=== PATIENT | female | born 1940 | race Two or more races ===

== ENCOUNTER 2017-09-19 04:48 | Emergency (ER) | payer MEDICARE, MEDICAID ==
[~2017-09-19] VITALS: Ht 154.9 cm; Wt 80.5 kg
[~2017-09-19 04:48] MED LIST: ALBU18HF2 INH; ASPI-1265 PO; ATOR-2 PO; DEXL60CA3 PO; INSU100V13 SQ; LANTUS SUBCUT; PAT0.1OS OP; SPIIN IH; VALS160T2 PO; [UNRECOGNIZED DRUG - OTHER]
[2017-09-19] MEDS ORDERED: phenylephrine 1% (X-tra strg) 15ml nasal spray NS PRN (05:48)
[2017-09-19] MEDS ORDERED: cloNIDine 0.1 mg tablet PO ONE (06:02)
[2017-09-19 07:56] VITALS: BP 234/106
[2017-09-19] MEDS ORDERED: cloNIDine 0.1 mg tablet PO SCH (08:00)
== END 2017-09-19 07:55 | disposition home or self-care (01) ==
LOC: ER 04:49
DX: R04.0 Epistaxis (principal); I10 Essential (primary) hypertension; E78.00 Pure hypercholesterolemia, unspecified; J44.9 Chronic obstructive pulmonary disease, unspecified; E11.9 Type 2 diabetes mellitus without complications; Z90.710 Acquired absence of both cervix and uterus; Z90.49 Acquired absence of other specified parts of digestive tract; Z88.0 Allergy status to penicillin; Z88.5 Allergy status to narcotic agent; Z88.1 Allergy status to other antibiotic agents; Z79.82 Long term (current) use of aspirin; Z79.899 Other long term (current) drug therapy; Z79.4 Long term (current) use of insulin
CPT/HCPCS: 30901; 99284

== ENCOUNTER 2017-09-21 21:09 | Emergency (ER) | payer MEDICARE, MEDICAID ==
[~2017-09-21] VITALS: Ht 154.9 cm; Wt 79.5 kg
[2017-09-21] MEDS ORDERED: nitroGLYCERIN 0.4mg SUBLingual tab SL PRN (21:15)
[2017-09-21] MEDS ORDERED: aspirin 81mg tab.chew PO ONE (21:15)
[2017-09-21 21:36] LABS: BASOPHILS % (AUTO) 0.6 % (0-1); EOSINOPHILS # (AUTO) 0.1 X10'3 (0-0.9); EOSINOPHILS % (AUTO) 1.1 % (0-6); HEMATOCRIT 39.5 % (35.0-45.0); HEMOGLOBIN 13.1 g/dl (12.0-16.0); LYMPHOCYTES # (AUTO) 1.8 X10'3 (1.1-4.8); LYMPHOCYTES % (AUTO) 26.3 % (21-51); MEAN CORPUSCULAR HEMOGLOBIN 29.3 PG (27.0-31.0); MEAN CORPUSCULAR HGB CONC 33.3 % (33.0-36.5); MEAN CORPUSCULAR VOLUME 88.2 FL (78-98); MEAN PLATELET VOLUME 8.9 FL (7.4-10.4); MONOCYTES # (AUTO) 0.4 X10'3 (0-0.9); MONOCYTES % (AUTO) 5.9 % (2-12); NEUTROPHILS # (AUTO) 4.4 X10'3 (1.8-7.7); NEUTROPHILS % (AUTO) 66.1 % (42-75); PLATELET COUNT 206 X10'3 (140-440); RED BLOOD COUNT 4.48 X10'6 (4.20-5.60); RED CELL DISTRIBUTION WIDTH 13.4 % (11.5-14.5); WHITE BLOOD COUNT 6.7 X10'3 (4.5-11.0)
[2017-09-21] MEDS ORDERED: MORPHINE 2MG in 2ml NS syringe IV PRN (21:45)
[2017-09-21 21:50] LABS: PROTHROMBIN TIME 9.9 SECONDS (9.0-12.0)
[2017-09-21] MEDS ORDERED: morphine 4 MG/ML inj SYRINge IV ONE (21:50)
[2017-09-21 21:51] LABS: ALANINE AMINOTRANSFERASE 12 U/L (12-78); ALBUMIN 3.3 G/DL (3.4-5.0); ALBUMIN/GLOBULIN RATIO 0.8 (1.1-1.5); ALKALINE PHOSPHATASE 130 IU/L (46-116); ANION GAP 4 (8-16); ASPARTATE AMINO TRANSFERASE 18 U/L (10-37); BILIRUBIN,TOTAL 0.4 MG/DL (0.1-1.0); BLOOD UREA NITROGEN 13 MG/DL (7-18); BUN/CREATININE RATIO 16.9 (6.6-38.0); CALCIUM 8.8 MG/DL (8.5-10.1); CHLORIDE 103 MMOL/L (99-107); CREATININE 0.77 MG/DL (0.40-0.90); GLUCOSE 312 MG/DL (70-104); POTASSIUM 3.8 MMOL/L (3.5-5.1); SODIUM 140 MMOL/L (135-145); TOTAL CARBON DIOXIDE 32.9 MMOL/L (24-32); TOTAL PROTEIN 7.2 G/DL (6.4-8.2); eGFR 73 ML/MIN
[2017-09-21 21:59] LABS: MAGNESIUM 1.9 MG/DL (1.5-2.4)
[2017-09-21] MEDS ORDERED: iohexol 350MG/ML 100ml bottle IV ONE (22:18)
[2017-09-21] MEDS ORDERED: LINA5TAB4 PO (23:01)
[2017-09-21] MEDS ORDERED: LANTUS SQ (23:01)
[2017-09-21] MEDS ORDERED: PARO40TA PO (23:01)
[2017-09-21] MEDS ORDERED: methylPREDNISolone sod succ 125mg/2ml vial IV ONE (23:20)
[2017-09-22 00:01] VITALS: BP 148/112
[2017-09-22] MEDS ORDERED: PRED20TA PO (00:27)
== END 2017-09-22 00:44 | disposition home or self-care (01) ==
LOC: ER 21:10
DX: R07.89 Other chest pain (principal); J44.1 Chronic obstructive pulmonary disease with (acute) exacerbation; E78.00 Pure hypercholesterolemia, unspecified; I10 Essential (primary) hypertension; E11.9 Type 2 diabetes mellitus without complications; M81.0 Age-related osteoporosis without current pathological fracture; Z90.49 Acquired absence of other specified parts of digestive tract; Z90.710 Acquired absence of both cervix and uterus; Z98.890 Other specified postprocedural states; Z90.89 Acquired absence of other organs; Z88.0 Allergy status to penicillin; Z88.5 Allergy status to narcotic agent; Z88.1 Allergy status to other antibiotic agents; Z79.82 Long term (current) use of aspirin; Z79.4 Long term (current) use of insulin; Z79.899 Other long term (current) drug therapy
CPT/HCPCS: 36415; 71045; 71275; 80053; 83735; 83880; 84484; 85025; 85379; 85610; 93005; 96374; 96375; 99285; J2270; J2930; J7030; Q9967; J2274

== ENCOUNTER 2017-11-19 16:25 | Emergency (ER) | payer MEDICARE, MEDICAID ==
[~2017-11-19] VITALS: Ht 154.9 cm; Wt 78.0 kg
[~2017-11-19 16:25] MED LIST changes: +LANTUS SQ; +LINA5TAB4 PO; +PARO40TA PO; -PAT0.1OS OP
[2017-11-19 20:14] VITALS: BP 179/66
== END 2017-11-19 20:16 | disposition home or self-care (01) ==
LOC: ER 16:26
DX: R04.0 Epistaxis (principal); E11.9 Type 2 diabetes mellitus without complications; E78.00 Pure hypercholesterolemia, unspecified; I10 Essential (primary) hypertension; J44.9 Chronic obstructive pulmonary disease, unspecified; K21.9 Gastro-esophageal reflux disease without esophagitis; G89.29 Other chronic pain; Z90.49 Acquired absence of other specified parts of digestive tract; Z90.710 Acquired absence of both cervix and uterus; Z98.890 Other specified postprocedural states; Z88.0 Allergy status to penicillin; Z88.5 Allergy status to narcotic agent; Z88.8 Allergy status to other drugs, medicaments and biological substances; Z79.82 Long term (current) use of aspirin; Z79.4 Long term (current) use of insulin; Z79.899 Other long term (current) drug therapy
CPT/HCPCS: 99283

== ENCOUNTER 2018-03-12 13:40 | Emergency (ER) | payer MEDICARE, MEDICAID ==
[~2018-03-12] VITALS: Ht 152.4 cm; Wt 83.6 kg
[2018-03-12 13:56] VITALS: BP 158/79
[2018-03-12 14:36] LABS: BASOPHILS % (AUTO) 0.2 % (0-1); EOSINOPHILS # (AUTO) 0.1 X10'3 (0-0.9); EOSINOPHILS % (AUTO) 1.8 % (0-6); HEMATOCRIT 40.3 % (35.0-45.0); HEMOGLOBIN 12.7 g/dl (12.0-16.0); LYMPHOCYTES # (AUTO) 1.5 X10'3 (1.1-4.8); LYMPHOCYTES % (AUTO) 30.5 % (21-51); MEAN CORPUSCULAR HEMOGLOBIN 27.1 PG (27.0-31.0); MEAN CORPUSCULAR HGB CONC 31.5 % (33.0-36.5); MEAN CORPUSCULAR VOLUME 85.9 FL (78-98); MONOCYTES # (AUTO) 0.4 X10'3 (0-0.9); MONOCYTES % (AUTO) 7.5 % (2-12); NEUTROPHILS # (AUTO) 2.9 X10'3 (1.8-7.7); PLATELET COUNT 289 X10'3 (140-440); RED BLOOD COUNT 4.69 X10'6 (4.20-5.60); RED CELL DISTRIBUTION WIDTH 14.5 % (11.5-14.5); WHITE BLOOD COUNT 4.9 X10'3 (4.5-11.0)
[2018-03-12 14:39] LABS: PROTHROMBIN TIME 10.1 SECONDS (9.0-12.0)
[2018-03-12 14:40] LABS: CLARITY,URINE SLIGHTLY CLOUDY (Clear); COLOR,URINE YELLOW (Yellow); GLUCOSE, URINE 100 mg/dl (Neg); KETONES,URINE NEGATIVE (Neg); LEUKOCYTE ESTERASE ,URINE SMALL (Neg); NITRITES, URINE NEGATIVE (Neg); OCCULT BLOOD,URINE TRACE-LYSED (Neg); PROTEIN,URINE NEGATIVE (Neg); UROBILINOGEN,URINE 0.2 E.U/dL (0.2-1.0)
[2018-03-12 14:41] LABS: UA COLLECTION TYPE CLN CATCH MIDSTREAM
[2018-03-12 14:43] LABS: ALANINE AMINOTRANSFERASE 25 U/L (12-78); ALBUMIN 3.3 G/DL (3.4-5.0); ALBUMIN/GLOBULIN RATIO 0.9 (1.1-1.5); ALKALINE PHOSPHATASE 86 IU/L (46-116); AMYLASE 30 U/L (25-115); ANION GAP 8 (8-16); ASPARTATE AMINO TRANSFERASE 18 U/L (10-37); BILIRUBIN,TOTAL 0.4 MG/DL (0.1-1.0); BLOOD UREA NITROGEN 10 MG/DL (7-18); BUN/CREATININE RATIO 12.8 (6.6-38.0); CALCIUM 8.6 MG/DL (8.5-10.1); CHLORIDE 104 MMOL/L (99-107); CREATININE 0.78 MG/DL (0.40-0.90); GLUCOSE 153 MG/DL (70-104); LIPASE 107 U/L (73-393); POTASSIUM 3.6 MMOL/L (3.5-5.1); SODIUM 143 MMOL/L (135-145); eGFR 72 ML/MIN
[2018-03-12 14:50] LABS: MUCUS STRANDS MANY /LPF (Neg)
[2018-03-12 14:51] LABS: BACTERIA,URINE FEW /HPF (Neg); WBC CLUMPS,URINE FEW /HPF (NEGATIVE)
[2018-03-12 14:52] LABS: RBC,URINE 0-2 /HPF (0-2)
[2018-03-12 14:54] LABS: RENAL CELLS, URINE FEW /HPF; SQUAMOUS EPITHELIAL CELL,UR MODERATE /LPF (FEW); TRANSITIONAL EPI CELLS,URINE FEW /HPF
[2018-03-12] MEDS ORDERED: SULF1TAB49 PO (14:58)
== END 2018-03-12 15:05 | disposition home or self-care (01) ==
LOC: ER 13:40
DX: N39.0 Urinary tract infection, site not specified (principal); R19.7 Diarrhea, unspecified; R14.0 Abdominal distension (gaseous); E78.00 Pure hypercholesterolemia, unspecified; I10 Essential (primary) hypertension; J44.9 Chronic obstructive pulmonary disease, unspecified; K21.9 Gastro-esophageal reflux disease without esophagitis; G89.29 Other chronic pain; E11.9 Type 2 diabetes mellitus without complications; M81.0 Age-related osteoporosis without current pathological fracture; I25.2 Old myocardial infarction; Z87.440 Personal history of urinary (tract) infections; Z88.0 Allergy status to penicillin; Z88.1 Allergy status to other antibiotic agents; Z88.6 Allergy status to analgesic agent; Z79.899 Other long term (current) drug therapy; Z79.82 Long term (current) use of aspirin; Z87.442 Personal history of urinary calculi; Z79.4 Long term (current) use of insulin; Z90.49 Acquired absence of other specified parts of digestive tract; Z90.710 Acquired absence of both cervix and uterus; Z90.89 Acquired absence of other organs
CPT/HCPCS: 36415; 80053; 81001; 82150; 83690; 85025; 85610; 87088; 99283

== ENCOUNTER 2018-03-23 14:20 | Emergency (ER) | payer MEDICARE, MEDICAID ==
[~2018-03-23] VITALS: Ht 152.4 cm; Wt 78.0 kg
[2018-03-23 15:19] LABS: BASOPHILS % (AUTO) 0.7 % (0-1); EOSINOPHILS # (AUTO) 0.1 X10'3 (0-0.9); EOSINOPHILS % (AUTO) 2.4 % (0-6); HEMATOCRIT 40.7 % (35.0-45.0); HEMOGLOBIN 13.1 g/dl (12.0-16.0); LYMPHOCYTES # (AUTO) 1.4 X10'3 (1.1-4.8); LYMPHOCYTES % (AUTO) 24.5 % (21-51); MEAN CORPUSCULAR HEMOGLOBIN 27.2 PG (27.0-31.0); MEAN CORPUSCULAR HGB CONC 32.1 % (33.0-36.5); MEAN CORPUSCULAR VOLUME 84.7 FL (78-98); MEAN PLATELET VOLUME 8.1 FL (7.4-10.4); MONOCYTES # (AUTO) 0.3 X10'3 (0-0.9); MONOCYTES % (AUTO) 5.9 % (2-12); NEUTROPHILS # (AUTO) 3.7 X10'3 (1.8-7.7); NEUTROPHILS % (AUTO) 66.5 % (42-75); PLATELET COUNT 282 X10'3 (140-440); RED BLOOD COUNT 4.81 X10'6 (4.20-5.60); RED CELL DISTRIBUTION WIDTH 15.7 % (11.5-14.5); WHITE BLOOD COUNT 5.5 X10'3 (4.5-11.0)
[2018-03-23 15:31] LABS: INR 1.1 INR; PROTHROMBIN TIME 10.7 SECONDS (9.0-12.0)
[2018-03-23 15:36] LABS: ALANINE AMINOTRANSFERASE 21 U/L (12-78); ALBUMIN 3.5 G/DL (3.4-5.0); ALKALINE PHOSPHATASE 82 IU/L (46-116); ANION GAP 6 (8-16); ASPARTATE AMINO TRANSFERASE 18 U/L (10-37); BILIRUBIN,TOTAL 0.4 MG/DL (0.1-1.0); BLOOD UREA NITROGEN 13 MG/DL (7-18); BUN/CREATININE RATIO 16.3 (6.6-38.0); CALCIUM 8.9 MG/DL (8.5-10.1); CHLORIDE 107 MMOL/L (99-107); GLUCOSE 113 MG/DL (70-104); POTASSIUM 3.9 MMOL/L (3.5-5.1); SODIUM 143 MMOL/L (135-145); TOTAL CARBON DIOXIDE 29.7 MMOL/L (24-32); TOTAL PROTEIN 7.1 G/DL (6.4-8.2); eGFR 70 ML/MIN
[2018-03-23 17:44] LABS: CLARITY,URINE CLEAR (Clear); COLOR,URINE YELLOW (Yellow); GLUCOSE, URINE NEGATIVE (Neg); KETONES,URINE TRACE mg/dl (Neg); LEUKOCYTE ESTERASE ,URINE TRACE (Neg); NITRITES, URINE NEGATIVE (Neg); OCCULT BLOOD,URINE TRACE-INTACT (Neg); PROTEIN,URINE TRACE mg/dl (Neg); UROBILINOGEN,URINE 0.2 E.U/dL (0.2-1.0)
[2018-03-23 17:52] LABS: UA COLLECTION TYPE CLN CATCH MIDSTREAM
[2018-03-23 17:57] LABS: MUCUS STRANDS MANY /LPF (Neg); SQUAMOUS EPITHELIAL CELL,UR MANY /LPF (FEW)
[2018-03-23 17:58] LABS: HYALINE CASTS 0-3 /LPF (NEGATIVE)
[2018-03-23 18:00] LABS: TRANSITIONAL EPI CELLS,URINE FEW /HPF
[2018-03-23 18:02] LABS: BACTERIA,URINE FEW /HPF (Neg)
[2018-03-23 18:21] VITALS: BP 167/79
== END 2018-03-23 18:23 | disposition home or self-care (01) ==
LOC: ER 14:20
DX: I70.0 Atherosclerosis of aorta (principal); K57.30 Diverticulosis of large intestine without perforation or abscess without bleeding; R11.0 Nausea; R19.7 Diarrhea, unspecified; E78.00 Pure hypercholesterolemia, unspecified; I10 Essential (primary) hypertension; J44.9 Chronic obstructive pulmonary disease, unspecified; K21.9 Gastro-esophageal reflux disease without esophagitis; E11.9 Type 2 diabetes mellitus without complications; G89.29 Other chronic pain; Z90.49 Acquired absence of other specified parts of digestive tract; Z90.710 Acquired absence of both cervix and uterus; Z98.890 Other specified postprocedural states; Z88.0 Allergy status to penicillin; Z88.5 Allergy status to narcotic agent; Z88.8 Allergy status to other drugs, medicaments and biological substances; Z79.82 Long term (current) use of aspirin; Z79.4 Long term (current) use of insulin; Z79.899 Other long term (current) drug therapy
CPT/HCPCS: 36415; 74176; 80053; 81001; 85025; 85610; 99284

== ENCOUNTER 2018-05-17 20:33 | Emergency (ER) | payer MEDICARE, MEDICAID ==
[~2018-05-17] VITALS: Ht 154.9 cm; Wt 72.0 kg
[2018-05-17 20:35] VITALS: BP 168/77
== END 2018-05-17 21:45 | disposition home or self-care (01) ==
LOC: ER 20:34
DX: E11.65 Type 2 diabetes mellitus with hyperglycemia (principal); R00.2 Palpitations; R07.9 Chest pain, unspecified; E78.00 Pure hypercholesterolemia, unspecified; I10 Essential (primary) hypertension; J44.9 Chronic obstructive pulmonary disease, unspecified; K21.9 Gastro-esophageal reflux disease without esophagitis; G89.29 Other chronic pain; M81.0 Age-related osteoporosis without current pathological fracture; Z90.49 Acquired absence of other specified parts of digestive tract; Z90.710 Acquired absence of both cervix and uterus; Z90.89 Acquired absence of other organs; Z98.890 Other specified postprocedural states; Z88.0 Allergy status to penicillin; Z88.5 Allergy status to narcotic agent; Z88.1 Allergy status to other antibiotic agents; Z79.82 Long term (current) use of aspirin; Z79.4 Long term (current) use of insulin; Z79.899 Other long term (current) drug therapy
CPT/HCPCS: 82948; 99282

== ENCOUNTER 2018-06-12 10:45 | Emergency (ER) | payer MEDICARE, MEDICAID ==
[~2018-06-12] VITALS: Ht 152.4 cm; Wt 72.0 kg
[~2018-06-12 10:45] MED LIST changes: +CEPH-571 PO
[2018-06-12 10:49] VITALS: BP 201/86
== END 2018-06-12 11:58 | disposition home or self-care (01) ==
LOC: ER 10:46
DX: N39.0 Urinary tract infection, site not specified (principal); T36.1X5A Adverse effect of cephalosporins and other beta-lactam antibiotics, initial encounter; M54.5 Low back pain; R07.89 Other chest pain; R05 Cough; E78.00 Pure hypercholesterolemia, unspecified; I10 Essential (primary) hypertension; J44.9 Chronic obstructive pulmonary disease, unspecified; K21.9 Gastro-esophageal reflux disease without esophagitis; G89.29 Other chronic pain; M81.0 Age-related osteoporosis without current pathological fracture; E11.9 Type 2 diabetes mellitus without complications; Z90.49 Acquired absence of other specified parts of digestive tract; Z90.710 Acquired absence of both cervix and uterus; Z98.890 Other specified postprocedural states; Z88.0 Allergy status to penicillin; Z88.5 Allergy status to narcotic agent; Z88.1 Allergy status to other antibiotic agents; Z79.4 Long term (current) use of insulin; Z79.899 Other long term (current) drug therapy; Y92.89 Other specified places as the place of occurrence of the external cause
CPT/HCPCS: 93005; 99283

== ENCOUNTER 2018-12-28 10:55 | Emergency (ER) | payer MEDICARE, MEDICAID ==
[~2018-12-28] VITALS: Ht 149.9 cm; Wt 60.0 kg
[2018-12-28] MEDS ORDERED: ibuprofen tablet 400 MG TABLET PO ONE (13:10)
[2018-12-28] MEDS: LIDOcaine 1% W/epiNEPHrine 1:100,000 20ml vial SQ ONE ×2 (13:21→13:28)
[2018-12-28 13:35] VITALS: BP 196/77
== END 2018-12-28 13:38 | disposition home or self-care (01) ==
LOC: ER 10:56
DX: S92.511A Displaced fracture of proximal phalanx of right lesser toe(s), initial encounter for closed fracture (principal); E78.00 Pure hypercholesterolemia, unspecified; I10 Essential (primary) hypertension; J44.9 Chronic obstructive pulmonary disease, unspecified; K21.9 Gastro-esophageal reflux disease without esophagitis; E11.9 Type 2 diabetes mellitus without complications; G89.29 Other chronic pain; F32.9 Major depressive disorder, single episode, unspecified; M81.0 Age-related osteoporosis without current pathological fracture; Z90.49 Acquired absence of other specified parts of digestive tract; Z90.710 Acquired absence of both cervix and uterus; Z90.89 Acquired absence of other organs; Z98.890 Other specified postprocedural states; Z88.0 Allergy status to penicillin; Z88.5 Allergy status to narcotic agent; Z88.1 Allergy status to other antibiotic agents; Z79.82 Long term (current) use of aspirin; Z79.4 Long term (current) use of insulin; Z79.899 Other long term (current) drug therapy; X58.XXXA Exposure to other specified factors, initial encounter; Y93.89 Activity, other specified; Y92.89 Other specified places as the place of occurrence of the external cause; Y99.8 Other external cause status
CPT/HCPCS: 73630; 99283

== ENCOUNTER 2019-02-26 08:07 | Emergency (ER) | payer MEDICARE, MEDICAID ==
[~2019-02-26] VITALS: Ht 152.4 cm; Wt 72.7 kg
[2019-02-26] MEDS ORDERED: dextrose 50%-water 50ml dispensing syringe IV ONE ×2 (08:25→11:10)
--- NOTE | 2019-02-26 08:43 | NUR ---
pt drank orange juice and received 1 amp D50 via IV x1. Glucose checked and now at191
[2019-02-26] MEDS ORDERED: normal saline 1000ML IV soln IVB ONE (08:55)
[2019-02-26 09:02] LABS: BASOPHILS % (AUTO) 0.2 % (0-1); EOSINOPHILS # (AUTO) 0.1 X10'3 (0-0.9); EOSINOPHILS % (AUTO) 2.3 % (0-6); HEMATOCRIT 41.5 % (35.0-45.0); HEMOGLOBIN 13.6 g/dl (12.0-16.0); LYMPHOCYTES # (AUTO) 1.6 X10'3 (1.1-4.8); LYMPHOCYTES % (AUTO) 30.9 % (21-51); MEAN CORPUSCULAR HEMOGLOBIN 29.7 PG (27.0-31.0); MEAN CORPUSCULAR HGB CONC 32.9 g/dL (33.0-36.5); MEAN CORPUSCULAR VOLUME 90.3 FL (78-98); MEAN PLATELET VOLUME 8.3 FL (7.4-10.4); MONOCYTES # (AUTO) 0.4 X10'3 (0-0.9); MONOCYTES % (AUTO) 7.6 % (2-12); PLATELET COUNT 238 X10'3 (140-440); RED CELL DISTRIBUTION WIDTH 14.1 % (11.5-14.5); WHITE BLOOD COUNT 5.2 X10'3 (4.5-11.0)
[2019-02-26 09:21] LABS: ALANINE AMINOTRANSFERASE 18 U/L (12-78); ALBUMIN 3.6 G/DL (3.4-5.0); ALKALINE PHOSPHATASE 87 IU/L (46-116); ANION GAP 7 (8-16); ASPARTATE AMINO TRANSFERASE 17 U/L (10-37); BILIRUBIN,TOTAL 0.5 MG/DL (0.1-1.0); BLOOD UREA NITROGEN 12 MG/DL (7-18); BUN/CREATININE RATIO 16.9 (6.6-38.0); CALCIUM 8.6 MG/DL (8.5-10.1); CHLORIDE 107 MMOL/L (99-107); CREATININE 0.71 MG/DL (0.40-0.90); GLUCOSE 75 MG/DL (70-104); POTASSIUM 3.8 MMOL/L (3.5-5.1); SODIUM 143 MMOL/L (135-145); TOTAL CARBON DIOXIDE 29.5 MMOL/L (24-32); TOTAL PROTEIN 7.1 G/DL (6.4-8.2); eGFR 80 ML/MIN
[2019-02-26 09:22] LABS: LIPASE 59 U/L (73-393)
[2019-02-26 10:32] LABS: CLARITY,URINE CLEAR (Clear); COLOR,URINE STRAW (Yellow); GLUCOSE, URINE 500 mg/dl (Neg); KETONES,URINE NEGATIVE (Neg); LEUKOCYTE ESTERASE ,URINE NEGATIVE (Neg); NITRITES, URINE NEGATIVE (Neg); OCCULT BLOOD,URINE NEGATIVE (Neg); PROTEIN,URINE NEGATIVE (Neg); UROBILINOGEN,URINE 0.2 E.U/dL (0.2-1.0)
[2019-02-26 10:34] LABS: UA COLLECTION TYPE CLN CATCH MIDSTREAM
[2019-02-26 12:16] VITALS: BP 157/59
== END 2019-02-26 12:53 | disposition home or self-care (01) ==
LOC: ER 08:07
DX: E11.649 Type 2 diabetes mellitus with hypoglycemia without coma (principal); E78.00 Pure hypercholesterolemia, unspecified; I10 Essential (primary) hypertension; J44.9 Chronic obstructive pulmonary disease, unspecified; K21.9 Gastro-esophageal reflux disease without esophagitis; G89.29 Other chronic pain; F32.9 Major depressive disorder, single episode, unspecified; M81.0 Age-related osteoporosis without current pathological fracture; F17.200 Nicotine dependence, unspecified, uncomplicated; Z90.49 Acquired absence of other specified parts of digestive tract; Z90.710 Acquired absence of both cervix and uterus; Z98.890 Other specified postprocedural states; Z90.89 Acquired absence of other organs; Z88.0 Allergy status to penicillin; Z88.5 Allergy status to narcotic agent; Z88.1 Allergy status to other antibiotic agents; Z79.82 Long term (current) use of aspirin; Z79.4 Long term (current) use of insulin; Z79.899 Other long term (current) drug therapy
CPT/HCPCS: 36415; 71045; 80053; 81003; 82948; 83690; 85025; 96374; 96376; 99284; J7030

== ENCOUNTER → 2019-03-07 | Emergency (ER) | payer MEDICARE, MEDICAID ==
[~2019-03-07] VITALS: Ht 152.4 cm; Wt 72.0 kg
[~2019-03-07] MED LIST changes: +PRED20TA PO; +acetaminophen 325mg tablet PO ONE
[2019-03-08 00:06] LABS: BASOPHILS % (AUTO) 0.5 % (0-1); EOSINOPHILS # (AUTO) 0.2 X10'3 (0-0.9); EOSINOPHILS % (AUTO) 4.8 % (0-6); HEMATOCRIT 40.4 % (35.0-45.0); HEMOGLOBIN 13.2 g/dl (12.0-16.0); LYMPHOCYTES # (AUTO) 1.9 X10'3 (1.1-4.8); LYMPHOCYTES % (AUTO) 37.8 % (21-51); MEAN CORPUSCULAR HEMOGLOBIN 29.1 PG (27.0-31.0); MEAN CORPUSCULAR HGB CONC 32.7 g/dL (33.0-36.5); MEAN PLATELET VOLUME 8.3 FL (7.4-10.4); MONOCYTES # (AUTO) 0.4 X10'3 (0-0.9); MONOCYTES % (AUTO) 8.2 % (2-12); NEUTROPHILS # (AUTO) 2.5 X10'3 (1.8-7.7); NEUTROPHILS % (AUTO) 48.7 % (42-75); PLATELET COUNT 248 X10'3 (140-440); RED BLOOD COUNT 4.54 X10'6 (4.20-5.60); RED CELL DISTRIBUTION WIDTH 14.4 % (11.5-14.5); WHITE BLOOD COUNT 5.1 X10'3 (4.5-11.0)
[2019-03-08 00:20] LABS: ALANINE AMINOTRANSFERASE 18 U/L (12-78); ALBUMIN 3.5 G/DL (3.4-5.0); ALBUMIN/GLOBULIN RATIO 1.1 (1.1-1.5); ALKALINE PHOSPHATASE 89 IU/L (46-116); ANION GAP 3 (8-16); ASPARTATE AMINO TRANSFERASE 13 U/L (10-37); BILIRUBIN,TOTAL 0.3 MG/DL (0.1-1.0); BLOOD UREA NITROGEN 12 MG/DL (7-18); CALCIUM 8.6 MG/DL (8.5-10.1); CHLORIDE 110 MMOL/L (99-107); CREATININE 0.75 MG/DL (0.40-0.90); GLUCOSE 75 MG/DL (70-104); POTASSIUM 3.6 MMOL/L (3.5-5.1); SODIUM 146 MMOL/L (135-145); TOTAL CARBON DIOXIDE 32.7 MMOL/L (24-32); TOTAL PROTEIN 6.7 G/DL (6.4-8.2); eGFR 75 ML/MIN
[2019-03-08 00:26] LABS: LIPASE 121 U/L (73-393); MAGNESIUM 1.9 MG/DL (1.5-2.4)
--- NOTE | 2019-03-08 00:30 | NUR ---
EDMD PATEE MADE AWARE OF PT BP. NO NEW ORDERS AT THIS TIME. WILL CONTINUE TO MONITOR.
--- NOTE | 2019-03-08 02:09 | NUR ---
edmd patee made aware of continuing high bp. no new orders
[2019-03-08 03:28] VITALS: BP 158/70
== END | disposition home or self-care (01) ==
LOC: ER 23:07
DX: R07.81 Pleurodynia (principal); R05 Cough; J44.9 Chronic obstructive pulmonary disease, unspecified; E78.00 Pure hypercholesterolemia, unspecified; I10 Essential (primary) hypertension; K21.9 Gastro-esophageal reflux disease without esophagitis; E11.9 Type 2 diabetes mellitus without complications; Z90.49 Acquired absence of other specified parts of digestive tract; Z90.710 Acquired absence of both cervix and uterus; Z98.890 Other specified postprocedural states; Z88.0 Allergy status to penicillin; Z88.5 Allergy status to narcotic agent; Z88.1 Allergy status to other antibiotic agents; Z79.82 Long term (current) use of aspirin; Z79.4 Long term (current) use of insulin; Z79.899 Other long term (current) drug therapy
CPT/HCPCS: 36415; 71045; 71100; 80053; 83690; 83735; 83880; 84484; 85025; 93005; 99284

== ENCOUNTER 2019-03-13 11:27 | Emergency (ER) | payer MEDICARE, MEDICAID ==
[~2019-03-13] VITALS: Ht 149.9 cm; Wt 69.0 kg
[~2019-03-13 11:27] MED LIST changes: -PRED20TA PO; -acetaminophen 325mg tablet PO ONE
[2019-03-13] MEDS ORDERED: albuterol 2.5 MG/3 ML nebule NEB ONE (12:50)
[2019-03-13] MEDS ORDERED: predniSONE 20 mg tablet PO ONE (12:50)
[2019-03-13] MEDS ORDERED: cephalexin 500mg capsule PO ONE (12:55)
[2019-03-13] MEDS ORDERED: CEPH-571 PO (12:56)
[2019-03-13] MEDS ORDERED: PRED20TA PO (12:56)
[2019-03-13 13:40] VITALS: BP 140/71
== END 2019-03-13 13:43 | disposition home or self-care (01) ==
LOC: ER 11:28
DX: J44.1 Chronic obstructive pulmonary disease with (acute) exacerbation (principal); E78.00 Pure hypercholesterolemia, unspecified; I10 Essential (primary) hypertension; K21.9 Gastro-esophageal reflux disease without esophagitis; E11.9 Type 2 diabetes mellitus without complications; G89.29 Other chronic pain; Z90.49 Acquired absence of other specified parts of digestive tract; Z90.710 Acquired absence of both cervix and uterus; Z98.890 Other specified postprocedural states; Z88.0 Allergy status to penicillin; Z88.5 Allergy status to narcotic agent; Z88.1 Allergy status to other antibiotic agents; Z88.3 Allergy status to other anti-infective agents; Z79.82 Long term (current) use of aspirin; Z79.4 Long term (current) use of insulin; Z99.81 Dependence on supplemental oxygen
CPT/HCPCS: 71045; 93005; 94640; 99283; J7512; 94760

== ENCOUNTER 2019-04-07 18:14 | Emergency (ER) | payer MEDICARE, MEDICAID ==
[~2019-04-07] VITALS: Ht 152.4 cm; Wt 70.0 kg
[~2019-04-07 18:14] MED LIST changes: +PRED20TA PO
[2019-04-07 18:23] VITALS: BP 162/79
[2019-04-07 19:00] LABS: CLARITY,URINE CLEAR (Clear); COLOR,URINE ORANGE (Yellow); GLUCOSE, URINE 250 mg/dl (Neg); KETONES,URINE NEGATIVE (Neg); LEUKOCYTE ESTERASE ,URINE NEGATIVE (Neg); NITRITES, URINE POSITIVE (Neg); OCCULT BLOOD,URINE TRACE-INTACT (Neg); PROTEIN,URINE 30 mg/dl (Neg)
[2019-04-07 19:03] LABS: UA COLLECTION TYPE CLN CATCH MIDSTREAM
[2019-04-07 19:06] LABS: BACTERIA,URINE NONE SEEN /HPF (Neg); RBC,URINE 0-2 /HPF (0-2); WBC,URINE 0-4 /HPF (0-4)
[2019-04-07 19:07] LABS: SQUAMOUS EPITHELIAL CELL,UR FEW /LPF (FEW); URIC ACID CRYSTALS 1+ /HPF (NEGATIVE)
[2019-04-07] MEDS ORDERED: ondansetron 4mg rapidly disintigrating tab PO ONE (19:35)
[2019-04-07] MEDS ORDERED: ONDA4TAB6 PO (20:23)
== END 2019-04-07 20:40 | disposition home or self-care (01) ==
LOC: ER 18:14
DX: N39.0 Urinary tract infection, site not specified (principal); R11.2 Nausea with vomiting, unspecified; E78.00 Pure hypercholesterolemia, unspecified; I10 Essential (primary) hypertension; J44.9 Chronic obstructive pulmonary disease, unspecified; K21.9 Gastro-esophageal reflux disease without esophagitis; E11.9 Type 2 diabetes mellitus without complications; M81.0 Age-related osteoporosis without current pathological fracture; F32.9 Major depressive disorder, single episode, unspecified; G89.29 Other chronic pain; Z90.49 Acquired absence of other specified parts of digestive tract; Z90.710 Acquired absence of both cervix and uterus; Z98.890 Other specified postprocedural states; Z88.0 Allergy status to penicillin; Z88.8 Allergy status to other drugs, medicaments and biological substances; Z88.1 Allergy status to other antibiotic agents; Z88.5 Allergy status to narcotic agent; Z79.4 Long term (current) use of insulin; Z79.82 Long term (current) use of aspirin; Z79.899 Other long term (current) drug therapy
CPT/HCPCS: 81001; 87088; 99284

== ENCOUNTER 2019-05-06 11:16 | Emergency (ER) | payer MEDICARE, MEDICAID ==
[~2019-05-06] VITALS: Ht 152.4 cm; Wt 68.8 kg
[~2019-05-06 11:16] MED LIST changes: +ONDA4TAB6 PO; -PRED20TA PO
[2019-05-06 13:04] LABS: BASOPHILS % (AUTO) 0.5 % (0-1); EOSINOPHILS # (AUTO) 0.3 X10'3 (0-0.9); EOSINOPHILS % (AUTO) 6.3 % (0-6); HEMATOCRIT 40.9 % (35.0-45.0); HEMOGLOBIN 13.4 g/dl (12.0-16.0); LYMPHOCYTES # (AUTO) 1.5 X10'3 (1.1-4.8); LYMPHOCYTES % (AUTO) 29.5 % (21-51); MEAN CORPUSCULAR HEMOGLOBIN 29.1 PG (27.0-31.0); MEAN CORPUSCULAR HGB CONC 32.7 g/dL (33.0-36.5); MEAN PLATELET VOLUME 8.2 FL (7.4-10.4); MONOCYTES # (AUTO) 0.3 X10'3 (0-0.9); MONOCYTES % (AUTO) 6.6 % (2-12); NEUTROPHILS # (AUTO) 2.9 X10'3 (1.8-7.7); NEUTROPHILS % (AUTO) 57.1 % (42-75); PLATELET COUNT 230 X10'3 (140-440); RED BLOOD COUNT 4.59 X10'6 (4.20-5.60); RED CELL DISTRIBUTION WIDTH 14.7 % (11.5-14.5)
[2019-05-06] MEDS ORDERED: ipratropium/albuterol 3ml nebule NEB ONE (13:20)
[2019-05-06 13:21] LABS: PARTIAL THROMBOPLASTIN TIME 29 SECONDS (22-32)
[2019-05-06 13:22] VITALS: BP 169/73
[2019-05-06 13:25] LABS: ALANINE AMINOTRANSFERASE 23 U/L (12-78); ALBUMIN 3.7 G/DL (3.4-5.0); ALBUMIN/GLOBULIN RATIO 1.1 (1.1-1.5); ALKALINE PHOSPHATASE 75 IU/L (46-116); ANION GAP 5 (8-16); ASPARTATE AMINO TRANSFERASE 24 U/L (10-37); BILIRUBIN,TOTAL 0.3 MG/DL (0.1-1.0); BLOOD UREA NITROGEN 14 MG/DL (7-18); BUN/CREATININE RATIO 20.9 (6.6-38.0); CALCIUM 8.7 MG/DL (8.5-10.1); CHLORIDE 110 MMOL/L (99-107); CREATININE 0.67 MG/DL (0.40-0.90); GLUCOSE 91 MG/DL (70-104); SODIUM 145 MMOL/L (135-145); TOTAL CARBON DIOXIDE 30.1 MMOL/L (24-32); TOTAL PROTEIN 7.1 G/DL (6.4-8.2); eGFR 86 ML/MIN
[2019-05-06 13:32] LABS: MAGNESIUM 1.9 MG/DL (1.5-2.4)
[2019-05-06] MEDS ORDERED: PRED20TA PO (14:17)
== END 2019-05-06 14:43 | disposition home or self-care (01) ==
LOC: ER 11:17
DX: J44.1 Chronic obstructive pulmonary disease with (acute) exacerbation (principal); E78.00 Pure hypercholesterolemia, unspecified; I10 Essential (primary) hypertension; K21.9 Gastro-esophageal reflux disease without esophagitis; E11.9 Type 2 diabetes mellitus without complications; G89.29 Other chronic pain; M81.0 Age-related osteoporosis without current pathological fracture; F32.9 Major depressive disorder, single episode, unspecified; Z90.49 Acquired absence of other specified parts of digestive tract; Z90.710 Acquired absence of both cervix and uterus; Z90.89 Acquired absence of other organs; Z98.890 Other specified postprocedural states; Z88.0 Allergy status to penicillin; Z88.5 Allergy status to narcotic agent; Z88.8 Allergy status to other drugs, medicaments and biological substances; Z79.82 Long term (current) use of aspirin; Z79.4 Long term (current) use of insulin; Z79.899 Other long term (current) drug therapy
CPT/HCPCS: 36415; 71045; 80053; 83735; 83880; 84484; 85025; 85610; 85730; 93005; 94640; 94760; 99285

== ENCOUNTER 2020-07-11 20:24 | Emergency (ER) | payer MEDICARE, MEDICAID ==
[~2020-07-11] VITALS: Ht 152.4 cm; Wt 65.0 kg
[~2020-07-11 20:24] MED LIST changes: +ARFO15VI NEB; -ATOR-2 PO; +ATOR20TA PO; -CEPH-571 PO; +CHOL400T57 PO; -LANTUS SUBCUT; -LINA5TAB4 PO; +LISI10TA27 PO; +LORA-268 PO; +METO-395 PO; +MONT10TA32 PO; -PARO40TA PO; -SPIIN IH; +TRAZ-251 PO; -VALS160T2 PO; -[UNRECOGNIZED DRUG - OTHER]
[2020-07-11] MEDS ORDERED: diazepam 5mg tablet PO ONE (23:50)
[2020-07-12 00:51] VITALS: BP 155/75
== END 2020-07-12 00:50 | disposition home or self-care (01) ==
LOC: ER 20:25
DX: M54.9 Dorsalgia, unspecified (principal); I10 Essential (primary) hypertension; E78.00 Pure hypercholesterolemia, unspecified; J44.9 Chronic obstructive pulmonary disease, unspecified; K21.9 Gastro-esophageal reflux disease without esophagitis; E11.9 Type 2 diabetes mellitus without complications; Z87.81 Personal history of (healed) traumatic fracture; Z87.448 Personal history of other diseases of urinary system; Z88.0 Allergy status to penicillin; Z88.5 Allergy status to narcotic agent; Z88.1 Allergy status to other antibiotic agents
CPT/HCPCS: 99283

== ENCOUNTER 2020-07-16 14:15 | Emergency (ER) | payer MEDICARE, MEDICAID ==
[~2020-07-16] VITALS: Ht 152.4 cm; Wt 47.3 kg
[2020-07-16] MEDS ORDERED: aspirin 81mg tab.chew PO ONE (14:20)
[2020-07-16] MEDS ORDERED: metoclopramide 5 mg/ml inj IV ONE (14:35)
[2020-07-16] MEDS ORDERED: diphenhydrAMINE 50 mg/ml inj IV ONE (14:35)
[2020-07-16] MEDS ORDERED: ketorolac tromethamine 15mg/ml inj. IV ONE (14:35)
[2020-07-16] MEDS ORDERED: normal saline 1000ML IV soln IVB ONE (14:35)
[2020-07-16 15:05] LABS: BASOPHILS % (AUTO) 0.3 % (0-1); EOSINOPHILS % (AUTO) 0.7 % (0-6); HEMATOCRIT 39.6 % (35.0-45.0); HEMOGLOBIN 13.2 g/dl (12.0-16.0); LYMPHOCYTES # (AUTO) 0.8 X10'3 (1.1-4.8); LYMPHOCYTES % (AUTO) 13.2 % (21-51); MEAN CORPUSCULAR HEMOGLOBIN 31.1 PG (27.0-31.0); MEAN CORPUSCULAR HGB CONC 33.2 g/dL (33.0-36.5); MEAN CORPUSCULAR VOLUME 93.6 FL (78-98); MEAN PLATELET VOLUME 7.7 FL (7.4-10.4); MONOCYTES # (AUTO) 0.3 X10'3 (0-0.9); MONOCYTES % (AUTO) 4.9 % (2-12); NEUTROPHILS # (AUTO) 5.2 X10'3 (1.8-7.7); NEUTROPHILS % (AUTO) 80.9 % (42-75); PLATELET COUNT 225 X10'3 (140-440); RED BLOOD COUNT 4.23 X10'6 (4.20-5.60); RED CELL DISTRIBUTION WIDTH 13.1 % (11.5-14.5); WHITE BLOOD COUNT 6.4 X10'3 (4.5-11.0)
[2020-07-16 15:19] LABS: ALANINE AMINOTRANSFERASE 23 U/L (12-78); ALBUMIN 3.6 G/DL (3.4-5.0); ALBUMIN/GLOBULIN RATIO 1.2 (1.1-1.5); ALKALINE PHOSPHATASE 63 IU/L (46-116); ANION GAP 7 (8-16); ASPARTATE AMINO TRANSFERASE 18 U/L (10-37); BILIRUBIN,TOTAL 0.5 MG/DL (0.1-1.0); BLOOD UREA NITROGEN 14 MG/DL (7-18); CALCIUM 8.9 MG/DL (8.5-10.1); CHLORIDE 105 MMOL/L (99-107); CREATININE 0.61 MG/DL (0.40-0.90); GLUCOSE 158 MG/DL (70-104); POTASSIUM 4.1 MMOL/L (3.5-5.1); SODIUM 141 MMOL/L (135-145); TOTAL CARBON DIOXIDE 29.4 MMOL/L (24-32); TOTAL PROTEIN 6.7 G/DL (6.4-8.2); eGFR > 90 ML/MIN
[2020-07-16 15:28] LABS: LIPASE 70 U/L (73-393)
[2020-07-16] MEDS ORDERED: ONDA4TAB12 PO (16:30)
[2020-07-16 16:56] VITALS: BP 107/72
== END 2020-07-16 16:57 | disposition home or self-care (01) ==
LOC: ER 14:15
DX: R07.89 Other chest pain (principal); R11.2 Nausea with vomiting, unspecified; R10.13 Epigastric pain; E78.00 Pure hypercholesterolemia, unspecified; I10 Essential (primary) hypertension; J45.909 Unspecified asthma, uncomplicated; J44.9 Chronic obstructive pulmonary disease, unspecified; K21.9 Gastro-esophageal reflux disease without esophagitis; E11.9 Type 2 diabetes mellitus without complications; G89.29 Other chronic pain; F32.9 Major depressive disorder, single episode, unspecified; Z90.49 Acquired absence of other specified parts of digestive tract; Z98.890 Other specified postprocedural states; Z77.22 Contact with and (suspected) exposure to environmental tobacco smoke (acute) (chronic); Z88.0 Allergy status to penicillin; Z88.5 Allergy status to narcotic agent; Z88.1 Allergy status to other antibiotic agents; Z79.899 Other long term (current) drug therapy; Z79.4 Long term (current) use of insulin
CPT/HCPCS: 36415; 71045; 80053; 83690; 83880; 84484; 85025; 93005; 96374; 96375; 99285; J1200; J1885; J2765; J7030

== ENCOUNTER 2020-10-14 09:56 | Emergency (ER) | payer MEDICARE, MEDICAID ==
[~2020-10-14] VITALS: Ht 152.4 cm; Wt 69.0 kg
[~2020-10-14 09:56] MED LIST changes: +ALBU6.7H9 INH; +DEXA4TAB67 PO; +ONDA4TAB12 PO
[2020-10-14] MEDS ORDERED: ALBU8.5H17 IH (12:13)
[2020-10-14 12:28] VITALS: BP 131/62
== END 2020-10-14 12:30 | disposition home or self-care (01) ==
LOC: ER 09:56
DX: U07.1 COVID-19 (principal); R06.02 Shortness of breath; R05 Cough; H53.8 Other visual disturbances; E78.00 Pure hypercholesterolemia, unspecified; I10 Essential (primary) hypertension; J44.9 Chronic obstructive pulmonary disease, unspecified; K21.9 Gastro-esophageal reflux disease without esophagitis; E11.9 Type 2 diabetes mellitus without complications; G89.29 Other chronic pain; F32.9 Major depressive disorder, single episode, unspecified; Z87.440 Personal history of urinary (tract) infections; Z90.49 Acquired absence of other specified parts of digestive tract; Z90.710 Acquired absence of both cervix and uterus; Z98.890 Other specified postprocedural states; Z90.89 Acquired absence of other organs; Z88.5 Allergy status to narcotic agent; Z88.1 Allergy status to other antibiotic agents; Z88.0 Allergy status to penicillin; Z79.82 Long term (current) use of aspirin; Z79.4 Long term (current) use of insulin; Z79.899 Other long term (current) drug therapy
CPT/HCPCS: 99283

== ENCOUNTER 2020-10-16 10:17 | Emergency (ER) | payer MEDICARE, MEDICAID ==
[~2020-10-16] VITALS: Ht 152.4 cm; Wt 60.9 kg
[~2020-10-16 10:17] MED LIST changes: +ALBU8.5H17 IH
[2020-10-16] MEDS ORDERED: ALBUTEROL INHALER 1 PUFF/90 MCG INHALER IH PRN (10:50)
[2020-10-16] MEDS ORDERED: dexamethasone sod phosphate 10mg/ml inj IV STA (10:54)
[2020-10-16] MEDS ORDERED: CASIRIVIMAB (REGN10933) 1332MG 600 MG, IMDEVIMAB (REGN10987) 1332mg 600 MG in normal sa... IV ONE (10:55)
--- NOTE | 2020-10-16 11:59 | NUR ---
PT ON THE PHONE WITH DAUGHTER- JUNE DISCUSSED HAVING PT RECEIVE THE MEDICATION FOR COVID CASIRIVIMAB. FAMILY AND PT AGREE WILL RECEIVE CASIRIVIMAB
[2020-10-16 12:07] LABS: BASOPHILS % (AUTO) 0.2 % (0-1); EOSINOPHILS # (AUTO) 0.1 X10'3 (0-0.9); EOSINOPHILS % (AUTO) 1.8 % (0-6); HEMATOCRIT 40.5 % (35.0-45.0); HEMOGLOBIN 13.4 g/dl (12.0-16.0); LYMPHOCYTES # (AUTO) 0.9 X10'3 (1.1-4.8); LYMPHOCYTES % (AUTO) 14.6 % (21-51); MEAN CORPUSCULAR HEMOGLOBIN 30.9 PG (27.0-31.0); MEAN CORPUSCULAR HGB CONC 33.2 g/dL (33.0-36.5); MEAN CORPUSCULAR VOLUME 93.1 FL (78-98); MEAN PLATELET VOLUME 7.9 FL (7.4-10.4); MONOCYTES # (AUTO) 0.4 X10'3 (0-0.9); MONOCYTES % (AUTO) 6.8 % (2-12); NEUTROPHILS # (AUTO) 4.5 X10'3 (1.8-7.7); NEUTROPHILS % (AUTO) 76.6 % (42-75); PLATELET COUNT 210 X10'3 (140-440); RED BLOOD COUNT 4.36 X10'6 (4.20-5.60); RED CELL DISTRIBUTION WIDTH 12.7 % (11.5-14.5); WHITE BLOOD COUNT 5.9 X10'3 (4.5-11.0)
[2020-10-16 12:18] LABS: ALANINE AMINOTRANSFERASE 21 U/L (12-78); ALBUMIN 3.3 G/DL (3.4-5.0); ALBUMIN/GLOBULIN RATIO 1.1 (1.1-1.5); ALKALINE PHOSPHATASE 66 IU/L (46-116); ANION GAP 4 (8-16); ASPARTATE AMINO TRANSFERASE 14 U/L (10-37); BILIRUBIN,TOTAL 0.4 MG/DL (0.1-1.0); BLOOD UREA NITROGEN 11 MG/DL (7-18); BUN/CREATININE RATIO 18.3 (6.6-38.0); CALCIUM 8.3 MG/DL (8.5-10.1); CHLORIDE 106 MMOL/L (99-107); GLUCOSE 218 MG/DL (70-104); POTASSIUM 4.2 MMOL/L (3.5-5.1); SODIUM 140 MMOL/L (135-145); TOTAL CARBON DIOXIDE 30.3 MMOL/L (24-32); TOTAL PROTEIN 6.4 G/DL (6.4-8.2); eGFR > 90 ML/MIN
[2020-10-16 13:20] VITALS: BP 162/68
--- NOTE | 2020-10-16 13:50 | NUR ---
pt tolerated casirivimab well. pt states, "i feel a little better"
== END 2020-10-16 13:53 | disposition home or self-care (01) ==
LOC: ER 10:17
DX: U07.1 COVID-19 (principal); J12.82 Pneumonia due to coronavirus disease 2019; J44.1 Chronic obstructive pulmonary disease with (acute) exacerbation; R06.02 Shortness of breath; R05 Cough; R43.8 Other disturbances of smell and taste; E78.00 Pure hypercholesterolemia, unspecified; I10 Essential (primary) hypertension; J44.9 Chronic obstructive pulmonary disease, unspecified; K21.9 Gastro-esophageal reflux disease without esophagitis; E11.9 Type 2 diabetes mellitus without complications; G89.29 Other chronic pain; F32.9 Major depressive disorder, single episode, unspecified; Z87.440 Personal history of urinary (tract) infections; Z90.49 Acquired absence of other specified parts of digestive tract; Z90.710 Acquired absence of both cervix and uterus; Z98.890 Other specified postprocedural states; Z88.0 Allergy status to penicillin; Z88.5 Allergy status to narcotic agent; Z88.1 Allergy status to other antibiotic agents; Z79.82 Long term (current) use of aspirin; Z79.4 Long term (current) use of insulin; Z79.899 Other long term (current) drug therapy
CPT/HCPCS: 36415; 71045; 80053; 85025; 93005; 96374; 99291; J1100; M0243; Q0243; 94760

== ENCOUNTER 2020-12-16 12:55 | Emergency (ER) | payer MEDICARE, MEDICAID ==
[~2020-12-16] VITALS: Ht 152.4 cm; Wt 60.9 kg
[2020-12-16 13:09] VITALS: BP 166/64
== END 2020-12-16 15:34 | disposition left against medical advice (07) ==
LOC: ER 12:55
DX: R06.02 Shortness of breath (principal); Z53.21 Procedure and treatment not carried out due to patient leaving prior to being seen by health care provider
CPT/HCPCS: 93005

== ENCOUNTER 2021-12-04 14:09 | Emergency (ER) | payer MEDICARE, MEDICAID ==
[~2021-12-04] VITALS: Ht 152.4 cm; Wt 65.0 kg
[~2021-12-04 14:09] MED LIST changes: +ALBU6.7H14 INH; -ALBU6.7H9 INH; +MONT-40 PO; -MONT10TA32 PO
[2021-12-04 15:32] LABS: BASOPHILS % (AUTO) 0.3 % (0-1); EOSINOPHILS # (AUTO) 0.1 X10'3 (0-0.9); EOSINOPHILS % (AUTO) 1.3 % (0-6); HEMATOCRIT 41.3 % (35.0-45.0); HEMOGLOBIN 13.5 g/dl (12.0-16.0); LYMPHOCYTES # (AUTO) 1.3 X10'3 (1.1-4.8); LYMPHOCYTES % (AUTO) 22.3 % (21-51); MEAN CORPUSCULAR HEMOGLOBIN 30.2 PG (27.0-31.0); MEAN CORPUSCULAR HGB CONC 32.8 g/dL (33.0-36.5); MONOCYTES # (AUTO) 0.3 X10'3 (0-0.9); NEUTROPHILS % (AUTO) 70.1 % (42-75); PLATELET COUNT 229 X10'3 (140-440); RED BLOOD COUNT 4.49 X10'6 (4.20-5.60); RED CELL DISTRIBUTION WIDTH 12.8 % (11.5-14.5); WHITE BLOOD COUNT 5.8 X10'3 (4.5-11.0)
[2021-12-04 15:35] LABS: ANION GAP 2 (8-16); CHLORIDE 103 MMOL/L (99-107); SODIUM 140 MMOL/L (135-145); TOTAL CARBON DIOXIDE 35.2 MMOL/L (24-32)
[2021-12-04 15:51] LABS: ALANINE AMINOTRANSFERASE 24 U/L (12-78); ALBUMIN 3.7 G/DL (3.4-5.0); ALBUMIN/GLOBULIN RATIO 1.1 (1.1-1.5); ALKALINE PHOSPHATASE 109 IU/L (46-116); ASPARTATE AMINO TRANSFERASE 22 U/L (10-37); BILIRUBIN,TOTAL 0.5 MG/DL (0.1-1.0); BLOOD UREA NITROGEN 8 MG/DL (7-18); BUN/CREATININE RATIO 12.5 (6.6-38.0); CALCIUM 9.5 MG/DL (8.5-10.1); CREATININE 0.64 MG/DL (0.40-0.90); GLUCOSE 154 MG/DL (70-104); LIPASE 102 U/L (73-393); TOTAL PROTEIN 7.2 G/DL (6.4-8.2); eGFR 90 ML/MIN
[2021-12-04] MEDS ORDERED: amLODIPine 5mg tablet PO ONE (17:10)
[2021-12-04] MEDS ORDERED: mag hydrox/Alum hydrox/simeth 30ml oral suspension PO ONE ×2 (17:15→21:00)
[2021-12-04 17:31] LABS: CLARITY,URINE CLEAR (Clear); GLUCOSE, URINE NEGATIVE (Neg); KETONES,URINE NEGATIVE (Neg); LEUKOCYTE ESTERASE ,URINE NEGATIVE (Neg); NITRITES, URINE NEGATIVE (Neg); OCCULT BLOOD,URINE SMALL (Neg); PROTEIN,URINE NEGATIVE (Neg); UROBILINOGEN,URINE 0.2 E.U/dL (0.2-1.0)
[2021-12-04 17:39] LABS: COLOR,URINE STRAW (Yellow)
[2021-12-04 17:40] LABS: UA COLLECTION TYPE STRAIGHT CATH
[2021-12-04 17:41] LABS: BACTERIA,URINE NONE SEEN /HPF (Neg); SQUAMOUS EPITHELIAL CELL,UR NONE SEEN /LPF (FEW); WBC,URINE NONE SEEN /HPF (0-4)
[2021-12-04] MEDS ORDERED: labetalol 20mg/4ml (5mg/ml) syringe IV ONE (17:45)
[2021-12-04] MEDS ORDERED: losartan 50mg tablet PO SCH (19:30)
[2021-12-04] MEDS ORDERED: losartan 50mg tablet PO ONE (19:30)
[2021-12-04] MEDS ORDERED: LIDOcaine Viscous 15ml cup TP ONE (21:00)
[2021-12-04 21:41] VITALS: BP 166/86
[2021-12-05] MEDS ORDERED: losartan 50mg tablet PO SCH (08:00)
== END 2021-12-04 21:44 | disposition home or self-care (01) ==
LOC: ER 14:09
DX: I10 Essential (primary) hypertension (principal); R10.13 Epigastric pain; R42 Dizziness and giddiness; E78.00 Pure hypercholesterolemia, unspecified; J45.909 Unspecified asthma, uncomplicated; J44.9 Chronic obstructive pulmonary disease, unspecified; K21.9 Gastro-esophageal reflux disease without esophagitis; E11.9 Type 2 diabetes mellitus without complications; G89.29 Other chronic pain; F32.A Depression, unspecified; Z87.440 Personal history of urinary (tract) infections; Z90.49 Acquired absence of other specified parts of digestive tract; Z90.710 Acquired absence of both cervix and uterus; Z90.89 Acquired absence of other organs; Z98.890 Other specified postprocedural states; Z88.0 Allergy status to penicillin; Z88.5 Allergy status to narcotic agent; Z88.1 Allergy status to other antibiotic agents; Z79.82 Long term (current) use of aspirin; Z79.4 Long term (current) use of insulin; Z79.899 Other long term (current) drug therapy
CPT/HCPCS: 36415; 80053; 81001; 83690; 84484; 85025; 93005; 96374; 99285; J3490; A4353

== ENCOUNTER 2022-12-03 23:19 | Emergency (ER) | payer MEDICARE, MEDICAID ==
[~2022-12-03] VITALS: Ht 152.4 cm; Wt 71.4 kg
[2022-12-03 23:22] VITALS: TEMP 98
[2022-12-04] MEDS ORDERED: amLODIPine 5mg tablet PO ONE
[2022-12-04] MEDS ORDERED: lisinopril 10 MG tablet PO ONE (01:15)
[2022-12-04] MEDS ORDERED: tranexamic acid 100mg/ml inj. TP ONE (01:20)
[2022-12-04] MEDS ORDERED: oxymetazoline 15 ML nasal spray NS ONE (01:20)
[2022-12-04] MEDS ORDERED: LIDOcaine 1% W/epiNEPHrine 1:100,000 20ml vial IJ ONE (01:25)
[2022-12-04] MEDS ORDERED: ondansetron 4mg rapidly disintigrating tab PO ONE (02:00)
[2022-12-04] MEDS ORDERED: ipratropium/albuterol 3ml nebule NEB STA (02:03)
[2022-12-04 02:08] VITALS: PULSE 71; RESP 16; O2SAT 91
[2022-12-04 02:14] VITALS: PULSE 69; RESP 16; O2SAT 94
[2022-12-04 03:00] VITALS: BP 153/71; PULSE 72; RESP 18; O2SAT 93
== END 2022-12-04 03:40 | disposition home or self-care (01) ==
LOC: ER 23:20
DX: R04.0 Epistaxis (principal); E78.00 Pure hypercholesterolemia, unspecified; I10 Essential (primary) hypertension; J45.909 Unspecified asthma, uncomplicated; J44.9 Chronic obstructive pulmonary disease, unspecified; E11.9 Type 2 diabetes mellitus without complications; G89.29 Other chronic pain; F32.A Depression, unspecified; Z88.0 Allergy status to penicillin; Z88.5 Allergy status to narcotic agent; Z88.8 Allergy status to other drugs, medicaments and biological substances; Z79.899 Other long term (current) drug therapy
CPT/HCPCS: 94640; 99285

== ENCOUNTER 2023-03-18 18:43 | Emergency (ER) | payer MEDICARE, MEDICAID ==
[~2023-03-18] VITALS: Ht 152.4 cm; Wt 72.7 kg
[2023-03-18 19:29] LABS: BILIRUBIN,URINE NEGATIVE (Neg); CLARITY,URINE CLEAR (Clear); COLOR,URINE YELLOW (Yellow); GLUCOSE, URINE 100 mg/dl (Neg); KETONES,URINE NEGATIVE (Neg); LEUKOCYTE ESTERASE ,URINE NEGATIVE (Neg); NITRITES, URINE NEGATIVE (Neg); OCCULT BLOOD,URINE TRACE-INTACT (Neg); PROTEIN,URINE NEGATIVE (Neg); UROBILINOGEN,URINE 0.2 E.U/dL (0.2-1.0)
[2023-03-18 19:36] LABS: UA COLLECTION TYPE CLN CATCH MIDSTREAM
[2023-03-18 19:47] LABS: MUCUS STRANDS FEW /LPF (Neg); SQUAMOUS EPITHELIAL CELL,UR FEW /LPF (FEW)
[2023-03-18 19:49] LABS: BACTERIA,URINE FEW /HPF (Neg); RBC,URINE 0-2 /HPF (0-2); RENAL CELLS, URINE FEW /HPF; WBC,URINE 0-4 /HPF (0-4)
[2023-03-18 20:17] LABS: BASOPHILS % (AUTO) 0.3 % (0-1); EOSINOPHILS # (AUTO) 0.1 X10'3 (0-0.9); HEMATOCRIT 37.1 % (35.0-45.0); HEMOGLOBIN 12.2 g/dl (12.0-16.0); LYMPHOCYTES # (AUTO) 1.3 X10'3 (1.1-4.8); LYMPHOCYTES % (AUTO) 16.6 % (21-51); MEAN CORPUSCULAR HEMOGLOBIN 28.9 PG (27.0-31.0); MEAN CORPUSCULAR HGB CONC 32.9 g/dL (33.0-36.5); MEAN CORPUSCULAR VOLUME 87.8 FL (78-98); MEAN PLATELET VOLUME 7.6 FL (7.4-10.4); MONOCYTES # (AUTO) 0.5 X10'3 (0-0.9); MONOCYTES % (AUTO) 5.8 % (2-12); NEUTROPHILS # (AUTO) 6.1 X10'3 (1.8-7.7); NEUTROPHILS % (AUTO) 76.3 % (42-75); PLATELET COUNT 214 X10'3 (140-440); RED BLOOD COUNT 4.22 X10'6 (4.20-5.60); RED CELL DISTRIBUTION WIDTH 14.8 % (11.5-14.5); WHITE BLOOD COUNT 7.9 X10'3 (4.5-11.0)
[2023-03-18 20:43] LABS: ALANINE AMINOTRANSFERASE 10 U/L (12-78); ALBUMIN 3.2 G/DL (3.4-5.0); ALBUMIN/GLOBULIN RATIO 0.8 (1.1-1.5); ALKALINE PHOSPHATASE 94 IU/L (46-116); ANION GAP 4 (8-16); ASPARTATE AMINO TRANSFERASE 15 U/L (10-37); BILIRUBIN,TOTAL 0.4 MG/DL (0.1-1.0); BLOOD UREA NITROGEN 14 MG/DL (7-18); BUN/CREATININE RATIO 17.3 (10.0-20.0); CALCIUM 8.8 MG/DL (8.5-10.1); CHLORIDE 106 MMOL/L (99-107); CREATININE 0.81 MG/DL (0.40-0.90); GLUCOSE 155 MG/DL (70-104); POTASSIUM 3.7 MMOL/L (3.5-5.1); SODIUM 141 MMOL/L (135-145); TOTAL CARBON DIOXIDE 30.6 MMOL/L (24-32); eCRCL 40 ML/MIN; eGFR 68 ML/MIN
[2023-03-19 00:14] VITALS: BP 145/67; PULSE 91; RESP 14; TEMP 99.5; O2SAT 95
== END 2023-03-19 01:40 | disposition home or self-care (01) ==
LOC: ER 18:44
DX: N39.0 Urinary tract infection, site not specified (principal); R68.83 Chills (without fever); Z20.822 Contact with and (suspected) exposure to COVID-19
CPT/HCPCS: 36415; 71045; 80053; 81001; 85025; 87502; 87503; 87811; 99284